=== PATIENT | female | born 2000 | race Caucasian/White ===

== ENCOUNTER 2024-05-21 09:13 | Emergency (ER) | payer BC ==
[2024-05-21 10:06] LABS: #Basophils 0.02 10x3/uL (0.0-0.2); #Monocytes 0.39 10x3/uL (0.0-1.1); #Neutrophils 13.55 10x3/uL (1.5-8.4); %Basophils 0.1 % (0.0-2.0); %Lymphocytes 5.3 % (18.0-47.0); %Monocytes 2.6 % (0.0-10.0); %Neutrophils 91.6 % (40.0-75.0); Hematocrit 44.2 % (34.9-44.5); Hemoglobin 14.5 g/dL (12.0-15.5); Mean Corpuscular HGB CONC 32.8 g/dL (32.0-36.0); Mean Corpuscular Hemoglobin 27.5 pg (27.0-33.0); Mean Corpuscular Volume 83.9 fL (81.6-98.3); Mean Platelet Volume 9.2 fL (7.4-10.4); Platelet Count 457 10x3/uL (150-450); RBC Distribution Width 11.9 % (11.5-14.5); Red Blood Cell (RBC) Count 5.27 10x6/uL (3.90-5.03); White Blood Cell (WBC) Count 14.8 10x3/uL (3.5-10.5)
[2024-05-21] MEDS ORDERED: Ketorolac Tromethamine 30 MG (1 mL) VIAL ONE (10:40)
[2024-05-21] MEDS ORDERED: Ondansetron PF 4 MG/2 ML Vial ONE (10:40)
[2024-05-21] MEDS ORDERED: Famotidine/PF 20 mg/2ml Vial ONE (10:41)
[2024-05-21 10:46] LABS: ALT (SGPT) 17 U/L (8-55); AST (SGOT) 18 U/L (5-34); Albumin 4.3 g/dL (3.5-5.0); Alkaline Phosphatase 61 U/L (40-110); Anion Gap 15 mmol/L (10-20); BUN (Urea Nitrogen) 10 mg/dL (7.0-18.7); Bilirubin, Total 0.7 mg/dL (0.2-1.2); Calc. Creatinine Clearance 0 mL/min (70-130); Calcium 9.4 mg/dL (7.8-10.44); Carbon Dioxide 20 mmol/L (22-29); Chloride 108 mmol/L (98-107); Estimated GFR 106; Globulin 3.5 g/dL (2.4-3.5); Glucose 138 mg/dL (70-105); Lipase 34 U/L (8-78); Potassium 4.3 mmol/L (3.5-5.1); Protein, Total 7.8 g/dL (6.0-8.3); Sodium 139 mmol/L (136-145)
[2024-05-21 11:10] LABS: Magnesium 1.9 mg/dL (1.6-2.6)
[2024-05-21] MEDS ORDERED: diphenhydrAMINE 50 MG/ML VIAL ONE (11:59)
[2024-05-21] MEDS ORDERED: Prochlorperazine 10 MG/2 ML VIAL ONE (11:59)
[2024-05-21] MEDS ORDERED: Iopamidol 370 76% 100 ML VIAL ONE (13:17)
[2024-05-21 13:38] LABS: Bilirubin Neg (Negative); Blood, Urine Negative (Negative); Glucose, Urine (Dipstick) Normal (Negative); Ketone, Urine 50 mg/dL (Negative); Leukocyte Negative (Negative); Nitrite Negative (Negative); Protein, Urine (Dipstick) 15 mg/dl (Neg-Trace); Specific Gravity, Urine 1.025 (1.005-1.030); Urobilinogen Normal mg/dL (Less than 2)
[2024-05-21 13:44] LABS: Pregnancy Test - Urine (BHCG) Negative (Negative); Pregu Control Background? CLEAR/WHITE (CLR/WHITE); Pregu Control Bar Appear? YES (CONTROL BAR); Specific Gravity 1.025 (1.002-1.036)
[2024-05-21 14:02] LABS: Clarity Cloudy (Clear)
[2024-05-21 14:04] LABS: Bacteria/HPF 4+ HPF (None Seen); CAUTI Indications for Culture Pelvic or flank pain; RBC/HPF None Seen HPF (0-3); WBC/HPF 0-3 HPF (0-3)
[2024-05-21 14:06] LABS: Urine Culture Reflex No No
[2024-05-21] MEDS ORDERED: Droperidol 5 MG/2 ML VIAL ONE (14:19)
[2024-05-21 16:34] LABS: Bilirubin Neg (Negative); Blood, Urine Negative (Negative); Clarity Clear (Clear); Glucose, Urine (Dipstick) Normal (Negative); Ketone, Urine 15 mg/dL (Negative); Leukocyte Negative (Negative); Nitrite Negative (Negative); Protein, Urine (Dipstick) 15 mg/dl (Neg-Trace); Specific Gravity, Urine 1.015 (1.005-1.030); Urobilinogen Normal mg/dL (Less than 2)
[2024-05-21 17:43] LABS: Bacteria/HPF 1+ HPF (None Seen); CAUTI Indications for Culture Pelvic or flank pain; Mucous/LPF 1+ LPF (<2+); RBC/HPF 0-3 HPF (0-3); Squamous Epithelial 0-3 HPF (0-3); WBC/HPF 0-3 HPF (0-3)
[2024-05-21 17:44] LABS: Urine Culture Reflex No No
== END 2024-05-21 17:06 | disposition home or self-care (01) ==
LOC: CSHERS 09:13
DX: K52.9 Noninfective gastroenteritis and colitis, unspecified (principal); F17.210 Nicotine dependence, cigarettes, uncomplicated
CPT/HCPCS: 74177; 80053; 81001; 81025; 83690; 83735; 85025; 96361; 96374; 96375; J0780; J1200; J1790; J1885; J2405; J3490; Q9967